=== PATIENT | female | born 1990 | race Caucasian/White ===

== ENCOUNTER 2017-06-03 16:11 | Inpatient (IN) | payer OTHER ==
[~2017-06-03] VITALS: Ht 162.6 cm; Wt 113.4 kg
[2017-06-03 16:17] VITALS: BP 155/89
--- NOTE | 2017-06-03 16:27 | NUR ---
PT AMBULATED TO BED 1
--- NOTE | 2017-06-03 16:30 | NUR ---
HEART TONE 140/MIN
--- NOTE | 2017-06-03 16:57 | NUR ---
PATIENT PRESENTS TO ED WITH SOB , STARTED 2 WEEKS AGO, EDEMATOUS, , 32 WEEKS, LMP OCTOBER 11 . PT STATES SHE HAS A PRESSURE LIKE ON HER CHEST AND BACK;DENIES N/V/D; SKIN IS PINK/WARM/DRY; AAOX4 WITH EVEN AND STEADY GAIT; PT DENIES ANY FEVER, CP, SOB, OR COUGH AT THIS TIME; PATIENT STATES PAIN OF 6/10 CHEST AND HEAD AT THIS TIME; PATIENT POSITIONED FOR COMFORT; HOB ELEVATED; BEDRAILS UP X2; BED DOWN. ALL MONITORS IN PLACED;ER MD MADE AWARE OF PT STATUS.
--- NOTE | 2017-06-03 17:11 | NUR ---
DR MELISSA AT BEDSIDE EVALUATING PT;
[2017-06-03 17:40] LABS: BASOPHILS # (AUTO) 0.2 K/uL (0.00-0.22); BASOPHILS % (AUTO) 1.2 % (0.0-2.0); EOSINOPHILS # (AUTO) 0.1 K/uL (0-0.4); EOSINOPHILS % (AUTO) 1.1 % (0.0-4.0); HEMATOCRIT 33.8 % (36-48); HEMOGLOBIN 11.3 g/dL (12.0-16.0); LYMPHOCYTES % (AUTO) 15.7 % (20.5-51.1); MEAN CORPUSCULAR HEMOGLOBIN 30 pg (27-31); MEAN CORPUSCULAR HGB CONC 34 g/dL (33-37); MEAN CORPUSCULAR VOLUME 88 fL (80-94); MONOCYTES # (AUTO) 0.8 K/uL (0.8-1.0); MONOCYTES % (AUTO) 6.1 % (1.7-9.3); NEUTROPHILS # (AUTO) 9.7 K/uL (1.8-7.7); NEUTROPHILS % (AUTO) 75.9 % (42.2-75.2); PLATELET COUNT (AUTO) 250 K/uL (140-450); RED BLOOD CELL COUNT(AUTO) 3.83 MIL/uL (4.20-5.40); RED CELL DISTRIBUTION WIDTH 13.7 % (11.6-13.7); WHITE BLOOD COUNT (AUTO) 12.8 K/uL (4.8-10.8)
[2017-06-03 17:53] LABS: ANION GAP 14.5 (8-16); CARBON DIOXIDE 22.2 mmol/L (21-32); CREATININE 0.7 mg/dL (0.6-1.3); POTASSIUM 3.7 mmol/L (3.5-5.1)
[2017-06-03 17:59] LABS: ALBUMIN 2.2 g/dL (3.4-5.0); TOTAL BILIRUBIN 0.4 mg/dL (0.0-1.0)
--- NOTE | 2017-06-03 18:34 | NUR ---
PT SITTING ON CHAIR;NAD;WILL CONTINUE TO MONITOR PT.
[2017-06-03 18:46] LABS: APPEARANCE,URINE HAZY (CLEAR); BILIRUBIN,URINE NEGATIVE (NEGATIVE); BLOOD, URINE TRACE-I (NEGATIVE); COLOR,URINE YELLOW (YELLOW); LEUKOCYTE ESTERASE ,URINE TRACE (NEGATIVE); NITRITE, URINE NEGATIVE (NEGATIVE); PH,URINE 5.5 (5.0-9.0); UGLUCOSE NEGATIVE (NEGATIVE)
[2017-06-03 18:48] LABS: RBC,URINE 3-10 (FEW) /HPF (0-5); WBC,URINE 6-15 (FEW) /HPF (0-5)
--- NOTE | 2017-06-03 18:56 | NUR ---
PT AMBULATED TO THE RESTROOM;
--- NOTE | 2017-06-03 19:06 | NUR ---
PT TRANSFERED TO BED 11;
--- NOTE | 2017-06-03 19:10 | NUR ---
RECEVIED REPORT FROM LITO FORMAN
[2017-06-03] MEDS ORDERED: ACETAMINOPHEN EXTRA STRENGTH 500 MG TAB PO PRN (19:40)
--- NOTE | 2017-06-03 19:41 | NUR ---
Ultrasound at bedside.
--- NOTE | 2017-06-03 20:05 | NUR ---
Patient will be admitted to care of [facility]. Admited to TELE. Will go to room 119A . Belongings list completed. BEDSIDE Report to JOSH FORMAN. IV SL AND PATENT
[2017-06-03 20:10] VITALS: BP 146/83
--- NOTE | 2017-06-03 20:10 | NUR ---
RECEIVED PATIENT FROM SUPPLY CHAIN TECHNICIAN. PATIENT A&OX4. PATIENT SPEAKS [place] AND [place], REQUESTED RESTORATIVE CARE TECHNICIAN. Singulex [id number]. PATIENT DENIES PAIN, BUT STATES SOB. O2 SAT IS 97%. NO SIGNS OR SYMPTOMS OF ACUTE DISTRESS NOTED. PATIENT ORIENTED TO UNIT. SAFETY MEASURES ENSURED. CALL LIGHT WITHIN REACH. WILL CONTINUE TO MONITOR.
[2017-06-03] MEDS ORDERED: METHYLDOPA 250 MG TAB PO SCH (21:30)
[2017-06-03 22:16] LABS: PROTHROMBIN TIME 9.4 secs (10.8-13.4)
[2017-06-04] VITALS: BP 136/77
--- NOTE | 2017-06-04 00:15 | NUR ---
DR. HATHAWAY IN TO SEE PATIENT.
--- NOTE | 2017-06-04 00:45 | NUR ---
DR. HATHAWAY ASKED FOR PATIENT TO BE TRANSFERRED TO L&D FOR FURTHER OBSERVATION OF MOTHER AND BABY. REPORT GIVEN TO SHIVA FORMAN. PATIENT IN STABLE CONDITION. PAGED ROLL CARRIER TO NOTIFY OF TRANSFER.
--- NOTE | 2017-06-04 01:11 | NUR ---
DR. WASHBURN CALLED BACK, INFORMED HER DR. HATHAWAY WANTS TO BE NEW ATTENDING PHYSICIAN. DR. WASHBURN AGREED.
[2017-06-04] MEDS ORDERED: ACETAMINOPHEN EXTRA STRENGTH 500 MG TAB ONE (02:13)
[2017-06-04 06:38] LABS: BASOPHILS # (AUTO) 0.1 K/uL (0.00-0.22); BASOPHILS % (AUTO) 1.1 % (0.0-2.0); EOSINOPHILS # (AUTO) 0.2 K/uL (0-0.4); EOSINOPHILS % (AUTO) 1.6 % (0.0-4.0); HEMATOCRIT 34.4 % (36-48); HEMOGLOBIN 11.6 g/dL (12.0-16.0); LYMPHOCYTES # (AUTO) 2.1 K/uL (2.5-16.5); LYMPHOCYTES % (AUTO) 19.6 % (20.5-51.1); MEAN CORPUSCULAR HEMOGLOBIN 30 pg (27-31); MEAN CORPUSCULAR HGB CONC 34 g/dL (33-37); MEAN CORPUSCULAR VOLUME 89 fL (80-94); MONOCYTES # (AUTO) 0.7 K/uL (0.8-1.0); MONOCYTES % (AUTO) 6.7 % (1.7-9.3); NEUTROPHILS # (AUTO) 7.7 K/uL (1.8-7.7); PLATELET COUNT (AUTO) 244 K/uL (140-450); RED BLOOD CELL COUNT(AUTO) 3.85 MIL/uL (4.20-5.40); RED CELL DISTRIBUTION WIDTH 13.6 % (11.6-13.7); WHITE BLOOD COUNT (AUTO) 10.8 K/uL (4.8-10.8)
[2017-06-04 07:05] LABS: ANION GAP 13.9 (8-16); CARBON DIOXIDE 23.3 mmol/L (21-32); CREATININE 0.5 mg/dL (0.6-1.3); POTASSIUM 4.2 mmol/L (3.5-5.1)
[2017-06-04] MEDS ORDERED: METHYLDOPA 250 MG TAB ONE ×2 (08:51→21:16)
[2017-06-04] MEDS: METHYLDOPA 250 MG TAB PO SCH ×2 (08:54→21:18)
[2017-06-04 21:19] LABS: BARBITURATE, URINE POS. ng/ml (NEG <=200); BENZODIAZEPINE, URINE NEG. ng/mL (NEG <=200); CANNABINOID, URINE NEG. ng/mL (NEG <=50); COCAINE, URINE NEG. ng/mL (NEG <=300); OPIATE, URINE NEG. ng/mL (NEG <=2000); PHENCYCLIDINE SCREEN,URINE NEG. ng/mL (NEG <=25)
[2017-06-05] MEDS ORDERED: METHYLDOPA 250 MG TAB ONE (09:09)
--- NOTE | 2017-06-05 09:41 | NUR ---
PATIENT HAS BEEN SCREENED AND CATEGORIZED LOW NUTRITION RISK. PATIENT WILL BE SEEN WITHIN 7 DAYS OF ADMISSION. 06/11/[address]
--- NOTE | 2017-06-05 11:37 | NUR ---
CM NOTE INITIAL REVIEW FAXED TO [facility] [phone] [facility] PH# [phone] RED PH# [phone]
[2017-06-06 09:15] LABS: HEPATITIS B SURFACE ANTIGEN NEGATIVE (NEGATIVE)
== END 2017-06-05 13:34 | disposition home or self-care (01) | DRG 566 ==
LOC: MED 16:11 → MTU 19:42 → MLD 06-04 00:40 → OBSVTOIN 06-04 01:21
PROVIDERS: ADMIT Obstetrics & Gynecology; ATTEND Obstetrics & Gynecology
DX: O11.3 Pre-existing hypertension with pre-eclampsia, third trimester (principal); O47.9 False labor, unspecified; Z3A.34 34 weeks gestation of pregnancy
CPT/HCPCS: 99285; G0378; 36415; 71045; 76805; 80048; 80053; 80305; 81001; 83880; 84484; 85025; 85379; 85610; 85730; 86762; 87081; 87086; 87340; 87653-90; 93005; 93970; Q0092

== ENCOUNTER 2017-06-08 21:30 | Inpatient (IN) | payer OTHER ==
[~2017-06-08] VITALS: Ht 162.6 cm; Wt 108.9 kg
[2017-06-08] MEDS ORDERED: hydrALAZINE 20 MG/ML VIAL IM SCH (22:05)
[2017-06-08] MEDS ORDERED: LACTATED RINGERS 1,000 ML IV SCH (22:05)
[2017-06-08] MEDS ORDERED: hydrALAZINE 20 MG/ML VIAL IVP SCH (22:05)
[2017-06-08] MEDS ORDERED: NALBUPHINE HYDROCHLORIDE 10 MG/ML VIAL ONE ×2 (22:05→23:38)
[2017-06-08] MEDS ORDERED: hydrALAZINE 20 MG/ML VIAL ONE (22:05)
[2017-06-08] MEDS ORDERED: MAG SULF 2000 MG/WATER PREMIX 50 ML IV ONE (22:05)
[2017-06-08] MEDS ORDERED: MAG SULF 20 GM/H2O PREMIX DRIP 500 ML IV ONE (22:22)
[2017-06-08] MEDS: WATER IV SCH (22:30)
[2017-06-08] MEDS: MAG SULF IV SCH (22:30)
[2017-06-08 22:59] LABS: APPEARANCE,URINE SL CLOUDY (CLEAR); BILIRUBIN,URINE NEGATIVE (NEGATIVE); BLOOD, URINE TRACE-I (NEGATIVE); COLOR,URINE YELLOW (YELLOW); LEUKOCYTE ESTERASE ,URINE NEGATIVE (NEGATIVE); NITRITE, URINE NEGATIVE (NEGATIVE); UGLUCOSE NEGATIVE (NEGATIVE)
[2017-06-08 23:01] LABS: ALBUMIN 2.1 g/dL (3.4-5.0); ANION GAP 14.9 (8-16); CREATININE 0.6 mg/dL (0.6-1.3); MAGNESIUM 1.9 mg/dL (1.8-2.4); POTASSIUM 3.9 mmol/L (3.5-5.1); TOTAL BILIRUBIN 0.4 mg/dL (0.0-1.0)
[2017-06-08 23:46] LABS: RBC,URINE 3-10 (FEW) /HPF (0-5)
[2017-06-08 23:57] LABS: BASOPHILS # (AUTO) 0.3 K/uL (0.00-0.22); BASOPHILS % (AUTO) 2.2 % (0.0-2.0); EOSINOPHILS # (AUTO) 0.1 K/uL (0-0.4); EOSINOPHILS % (AUTO) 0.8 % (0.0-4.0); HEMATOCRIT 35.6 % (36-48); HEMOGLOBIN 12.1 g/dL (12.0-16.0); LYMPHOCYTES # (AUTO) 1.8 K/uL (2.5-16.5); LYMPHOCYTES % (AUTO) 12.2 % (20.5-51.1); MEAN CORPUSCULAR HEMOGLOBIN 30 pg (27-31); MEAN CORPUSCULAR HGB CONC 34 g/dL (33-37); MEAN CORPUSCULAR VOLUME 90 fL (80-94); MONOCYTES # (AUTO) 0.9 K/uL (0.8-1.0); MONOCYTES % (AUTO) 6.3 % (1.7-9.3); NEUTROPHILS # (AUTO) 11.5 K/uL (1.8-7.7); NEUTROPHILS % (AUTO) 78.5 % (42.2-75.2); PLATELET COUNT (AUTO) 228 K/uL (140-450); RED BLOOD CELL COUNT(AUTO) 3.98 MIL/uL (4.20-5.40); RED CELL DISTRIBUTION WIDTH 13.8 % (11.6-13.7); WHITE BLOOD COUNT (AUTO) 14.6 K/uL (4.8-10.8)
[2017-06-09] MEDS: NALBUPHINE 10 MG/ML AMP IVP PRN ×2 (00:29→02:08)
[2017-06-09] MEDS ORDERED: INFLUENZA VIRUS VACCINE QUAD 0.5 ML SYR IMVAC SCH (00:35)
[2017-06-09 00:37] VITALS: BP 200/109
[2017-06-09] MEDS: WATER IV SCH (01:23)
[2017-06-09] MEDS: MAG SULF IV SCH (01:23)
[2017-06-09] MEDS ORDERED: NALBUPHINE HYDROCHLORIDE 10 MG/ML VIAL ONE (02:06)
[2017-06-09] MEDS ORDERED: BETAMETH ACET/BETAMETH NA PH 30 MG/5 ML VIAL IM ONE (06:40)
[2017-06-09] MEDS ORDERED: BETAMETH ACET/BETAMETH NA PH 30 MG/5 ML VIAL IM SCH (06:40)
[2017-06-09] MEDS ORDERED: AMPICILLIN 2,000 MG in NACL 0.9% 100 ML IV SCH (06:40)
[2017-06-09] MEDS ORDERED: AMPICILLIN 2,000 MG VIAL ONE (06:41)
[2017-06-09] MEDS ORDERED: MAG SULF 20 GM/H2O PREMIX DRIP 500 ML IV ONE (07:52)
--- NOTE | 2017-06-09 08:19 | NUR ---
CM NOTE INITIAL REVIEW FAXED TO [facility] [phone] RED PH# [phone]
--- NOTE | 2017-06-09 08:26 | NUR ---
PATIENT HAS BEEN SCREENED AND CATEGORIZED LOW NUTRITION RISK. PATIENT WILL BE SEEN WITHIN 7 DAYS OF ADMISSION. 06/14/[address]
[2017-06-09 09:16] LABS: PROTHROMBIN TIME 9.2 secs (10.8-13.4)
[2017-06-09] MEDS ORDERED: AMPICILLIN 1,000 MG VIAL ONE (09:55)
[2017-06-09] MEDS ORDERED: ACETAMINOPHEN 325 MG TAB PO PRN (10:30)
[2017-06-09] MEDS ORDERED: ACETAMINOPHEN 325 MG TAB ONE (10:52)
[2017-06-09] MEDS ORDERED: AMPICILLIN 1,000 MG in NACL 0.9% 50 ML IV SCH (12:00)
--- NOTE | 2017-06-09 12:08 | NUR ---
CM NOTE DR. QUIÑONES SPOKE WITH [facility] MED DIRECTOR REGARDING NEED TO TRANSFER FOR HIGHER LEVEL OF CARE. PER [facility] LOLY MOON PH# [phone] THEY ARE AUTHORIZING THE TRANSFER TO [facility] AND [facility] AMBULANCE TRANSPORT BUT NOT TO MATERNAL TRANSPORT TEAM. PER [facility] LOLY MOON, FOR [facility] AUTH# [id number], FOR [facility] AMBULANCE TRANSPORT [id number]. KATHLEEN FORMAN AWARE.
--- NOTE | 2017-06-12 13:48 | NUR ---
CM NOTE DISCHARGE SUMMARY FAXED TO [facility] [phone] RED PH# [phone]
== END 2017-06-09 12:55 | disposition short-term general hospital (02) | DRG 566 ==
LOC: MLD 21:30 → OBSVTOIN 21:30
PROVIDERS: ADMIT Obstetrics & Gynecology; ATTEND Obstetrics & Gynecology
DX: O14.13 Severe pre-eclampsia, third trimester (principal); Z68.41 Body mass index [BMI] 40.0-44.9, adult; I16.0 Hypertensive urgency; O34.211 Maternal care for low transverse scar from previous cesarean delivery; E66.01 Morbid (severe) obesity due to excess calories; O99.213 Obesity complicating pregnancy, third trimester; Z3A.34 34 weeks gestation of pregnancy
CPT/HCPCS: 36415; 76705; 80053; 81001; 83735; 85025; 85379; 85384; 85610; 85730; 86886; 86900; 86901; 87086; 93970; J0290; J0360; J0702; J2300; J3475; J7120; Q0092

== ENCOUNTER 2017-10-15 19:19 | Emergency (ER) | payer OTHER ==
[~2017-10-15] VITALS: Ht 162.6 cm; Wt 122.1 kg
[2017-10-15 19:21] VITALS: BP 153/90
--- NOTE | 2017-10-15 19:26 | NUR ---
TO BED # 5 AMBULATORY, REPORT GIVEN TO MIRIAM FORMAN.
--- NOTE | 2017-10-15 19:27 | NUR ---
PT AMBULATED TO BED 9. 27/F CAME IN ED, C/O 02/07 INTERMITTENT EPIGASTRIC PRESSURE-LIKE PAIN, RADIATING TO BACK, X4 HOURS. PT REPORTS N/V. PT REPORTS TAKING TYLENOL WITH NO RELIEF. HX GALLSTONES, HTN. SKIN IS INTACT, PINK/WARM/DRY; AAOX4, PERRL, WITH EVEN AND STEADY GAIT; LUNGS CLEAR BL, BREATHING UNLABORED; HR EVEN AND REGULAR, BL PERIPHERAL PULSES PRESENT; PT DENIES ANY FEVER, CP, SOB, OR COUGH AT THIS TIME; PATIENT POSITIONED FOR COMFORT; HOB ELEVATED; BEDRAILS UP X2; BED DOWN.
--- NOTE | 2017-10-15 19:28 | NUR ---
27/F CAME IN ED, C/O 02/07 INTERMITTENT EPIGASTRIC PRESSURE-LIKE PAIN, RADIATING TO BACK. PT STATED SHE LAST ATE [facility] FOR LUNCH. PT REPORTS N/V. PT REPORTS SIMILAR EPISODE WITH GALLSTONE 4 MONTHS AGO. HX GALLSTONE, HTN. PT REPORTS TAKING TYLENOL WITH NO RELIEF. SKIN IS INTACT, PINK/WARM/DRY; AAOX4, PERRL, WITH EVEN AND STEADY GAIT; LUNGS CLEAR BL, BREATHING UNLABORED; HR EVEN AND REGULAR, BL PERIPHERAL PULSES PRESENT; BS ACTIVE X4, +TENDERNESS; PT DENIES ANY FEVER, CP, SOB, OR COUGH AT THIS TIME; PATIENT POSITIONED FOR COMFORT; HOB ELEVATED; BEDRAILS UP X2; BED DOWN.
[2017-10-15] MEDS ORDERED: NACL 0.9% 1,000 ML IV ONE (19:59)
[2017-10-15] MEDS ORDERED: MORPHINE SULFATE 4 MG/ML SYR IVP ONE (20:00)
[2017-10-15] MEDS ORDERED: ONDANSETRON 4 MG/2 ML VIAL IVP ONE (20:00)
[2017-10-15 20:32] LABS: BASOPHILS % (AUTO) 0.3 % (0.0-2.0); EOSINOPHILS # (AUTO) 0.2 K/uL (0-0.4); EOSINOPHILS % (AUTO) 1.5 % (0.0-4.0); HEMOGLOBIN 12.8 g/dL (12.0-16.0); LYMPHOCYTES # (AUTO) 3.1 K/uL (2.5-16.5); LYMPHOCYTES % (AUTO) 27.3 % (20.5-51.1); MEAN CORPUSCULAR HEMOGLOBIN 29 pg (27-31); MEAN CORPUSCULAR HGB CONC 34 g/dL (33-37); MEAN CORPUSCULAR VOLUME 85.6 fL (80-94); MONOCYTES # (AUTO) 0.6 K/uL (0.8-1.0); MONOCYTES % (AUTO) 5.3 % (1.7-9.3); NEUTROPHILS # (AUTO) 7.5 K/uL (1.8-7.7); NEUTROPHILS % (AUTO) 65.6 % (42.2-75.2); PLATELET COUNT (AUTO) 379 K/uL (140-450); RED BLOOD CELL COUNT(AUTO) 4.44 MIL/uL (4.20-5.40); RED CELL DISTRIBUTION WIDTH 13.5 % (11.6-13.7); WHITE BLOOD COUNT (AUTO) 11.5 K/uL (4.8-10.8)
[2017-10-15 20:45] LABS: CARBON DIOXIDE 26.9 mmol/L (21-32); CREATININE 0.8 mg/dL (0.6-1.3); POTASSIUM 3.9 mmol/L (3.5-5.1)
--- NOTE | 2017-10-15 20:45 | NUR ---
PT RESTING COMFORTABLY IN BED, PT REPORTS RELIEF OF PAIN AND NAUSEA AT THIS TIME, VSS. ALL NEEDS MET.
[2017-10-15 20:50] LABS: ALBUMIN 3.8 g/dL (3.4-5.0); TOTAL BILIRUBIN 0.5 mg/dL (0.0-1.0)
[2017-10-15 21:15] VITALS: BP 125/85
--- NOTE | 2017-10-15 21:15 | NUR ---
Patient discharged with v/s stable. Written and verbal after care instructions given and explained. Patient alert, oriented and verbalized understanding of instructions. Ambulatory with steady gait. All questions addressed prior to discharge. ID band removed. Patient advised to follow up with PMD. Rx of Mylanta given. Patient educated on indication of medication including possible reaction and side effects. Opportunity to ask questions provided and answered.
== END 2017-10-15 21:15 | disposition home or self-care (01) ==
LOC: MED 19:19
DX: K80.20 Calculus of gallbladder without cholecystitis without obstruction (principal); K80.50 Calculus of bile duct without cholangitis or cholecystitis without obstruction; I10 Essential (primary) hypertension
CPT/HCPCS: 36415; 80053; 81002; 81025; 83690; 85025; 96361; 96374; 96375; 99284; J2270; J2405; J7030